=== PATIENT | male | born 1965 | race Caucasian/White ===

== ENCOUNTER 2022-07-15 03:13 | Emergency (ER) | payer MEDICAID ==
[~2022-07-15] VITALS: Ht 170.1 cm; Wt 72.6 kg
== END 2022-07-15 04:57 | disposition home or self-care (01) ==
LOC: ED 03:13
DX: S10.86XA Insect bite of other specified part of neck, initial encounter (principal); W57.XXXA Bitten or stung by nonvenomous insect and other nonvenomous arthropods, initial encounter; Y93.89 Activity, other specified; Y92.89 Other specified places as the place of occurrence of the external cause; Y99.8 Other external cause status

== ENCOUNTER 2022-09-03 11:30 | Inpatient (IN) | payer MEDICAID ==
[~2022-09-03] VITALS: Ht 170.1 cm; Wt 67.2 kg
[2022-09-03 12:00] VITALS: BP 154/67
[2022-09-03 12:54] LABS: BASO # 0.1 10*3/uL (0.0-0.1); BASO % 0.6 % (0.0-1.0); EOS # 0.2 10*3/uL (0.0-0.4); EOS % 2.6 % (1.0-4.0); HEMATOCRIT 39.4 % (42.0-52.0); LYMPH # 2.1 10*3/uL (1.3-4.4); LYMPH % 22.1 % (27.0-41.0); MEAN CELL VOLUME 87.8 fl (80.0-94.0); MEAN CORPUSCULAR HGB 31.2 pg (27.0-31.0); MEAN CORPUSCULAR HGB CONC 35.5 g/dl (33.0-37.0); MEAN PLATELET VOLUME 9.9 fl (9.6-12.3); MONO # 0.8 10*3/uL (0.1-1.0); MONO % 8.1 % (3.0-9.0); NEUT # 6.3 10*3/uL (2.3-7.9); NEUT % 66.4 % (47.0-73.0); PLATELET COUNT AUTOMATED 355 10*3/uL (130-400); RED BLOOD COUNT 4.49 10*6/uL (4.50-5.90); RED CELL DISTRI WIDTH 12.8 % (0-14.5); WHITE BLOOD COUNT 9.4 10*3/uL (4.8-10.8)
[2022-09-03 13:07] LABS: INTERNATIONAL NORM RATIO 1.1 (2.0-3.5)
[2022-09-03 13:20] LABS: ALKALINE PHOSPHATASE 90 U/L (46-116); BUN 10 mg/dl (9-23); CHLORIDE 102 mmol/L (98-107); POTASSIUM 3.6 mmol/L (3.4-5.1); SGPT/ALT 13 U/L (10-49); TOTAL PROTEIN 7.2 gm/dL (6.0-8.0)
[2022-09-03 13:23] LABS: FREE T4 1.11 ng/dl (0.89-1.76); THYROID STIM HORMONE (HS) 3.23 uIU/ml (0.550-4.780)
[2022-09-03 13:24] LABS: ETHYL ALCOHOL < 3.0 mg/dl (<3)
[2022-09-03 15:35] LABS: BILIRUBIN Negative (Negative); BLOOD 1+ (Negative); CLARITY Clear (Clear); COLOR Yellow (Yellow); GLUCOSE Negative (Negative); KETONE Negative (Negative); LEUKO ESTERASE 2+ (Negative); NITRITE Negative (Negative); SPECIFIC GRAVITY <= 1.005 (1.001-1.030); UROBILINOGEN 0.2 E.U./dl (0.0-1.0)
[2022-09-03 15:41] LABS: URINE AMPHETAMINES Positive (1000ng/ml); URINE BARBITURATES Negative (200ng/ml); URINE BENZODIAZEPINES Negative (200ng/ml); URINE CANNABINOIDS (THC) Negative (50ng/ml); URINE COCAINE Positive (300ng/ml); URINE METHADONE Negative (300ng/ml); URINE OPIATES Negative (300ng/ml); URINE PHENCYCLIDINE Negative (25ng/ml)
[2022-09-03 15:46] LABS: BACTERIA 1+; WBC 41-50 wbc/hpf (0-5)
[2022-09-03 16:00] VITALS: BP 132/64
[2022-09-03 20:00] VITALS: BP 122/66
[2022-09-04] VITALS: BP 130/53
[2022-09-04 08:00] VITALS: BP 107/53
[2022-09-04 12:00] VITALS: BP 115/56
[2022-09-04 16:00] VITALS: BP 138/66
[2022-09-04 20:00] VITALS: BP 122/52
[2022-09-05] VITALS: BP 125/62
[2022-09-05 02:15] VITALS: BP 117/66
[2022-09-05 08:00] VITALS: BP 126/65
[2022-09-05 12:00] VITALS: BP 126/64
[2022-09-05 16:00] VITALS: BP 124/62
[2022-09-05 20:00] VITALS: BP 122/67
[2022-09-06] VITALS: BP 126/69
[2022-09-06 08:00] VITALS: BP 129/56
== END 2022-09-06 09:30 | disposition home or self-care (01) | DRG 774 ==
LOC: 5E 11:30
PROVIDERS: Family Medicine; ADMIT Internal Medicine; ATTEND Internal Medicine
DX: F14.93 Cocaine use, unspecified with withdrawal (principal); E87.1 Hypo-osmolality and hyponatremia; F17.200 Nicotine dependence, unspecified, uncomplicated; R73.9 Hyperglycemia, unspecified; E03.9 Hypothyroidism, unspecified; Z87.820 Personal history of traumatic brain injury; Z83.6 Family history of other diseases of the respiratory system; Z80.3 Family history of malignant neoplasm of breast; Z86.39 Personal history of other endocrine, nutritional and metabolic disease

== ENCOUNTER 2022-09-13 19:06 | Emergency (ER) | payer MEDICAID ==
[~2022-09-13] VITALS: Ht 172.7 cm; Wt 81.6 kg
[2022-09-13] MEDS ORDERED: CIPRO500 MG PO (19:42)
== END 2022-09-13 19:54 | disposition home or self-care (01) ==
LOC: ED 19:06
DX: N45.1 Epididymitis (principal); J44.9 Chronic obstructive pulmonary disease, unspecified; F14.10 Cocaine abuse, uncomplicated; F17.210 Nicotine dependence, cigarettes, uncomplicated; F12.90 Cannabis use, unspecified, uncomplicated